=== PATIENT | male | born 1980 | race Caucasian/White ===

== ENCOUNTER 2017-09-18 08:47 | Day surgery (SDC) | payer OTHER ==
[~2017-09-18 08:47] MED LIST: Lactated Ringers 1,000 ML IV SCH; Sodium Chloride 0.9% 10 ML Syringe FLUSH PRN
[2017-09-18] MEDS ORDERED: Propofol 200 MG/20 ML SDV ONE ×3 (10:50→11:20)
--- NOTE | 2017-09-18 10:55 | PCM.PN ---
- General Info Date of Service: 09/18/17 - Review of Systems Systems Review Comment:: 37-year-old male referred by Glenys Ruvalcaba for colonoscopy. He has a history of loose stools for several years but worse over the last 2 years. He is medically stable to proceed today with no recent significant change in his health status. I discussed the proposed colonoscopy with the patient. Risks such as but not limited to bleeding and GI injury are reviewed. He appears to understand and agrees to proceed. - Patient Data Vitals - Most Recent: Last Vital Signs Temp 98.6 F 09/18/17 10:13 Pulse 77 09/18/17 10:13 Resp 18 09/18/17 10:13 BP 140/84 09/18/17 10:13 Pulse Ox 95 09/18/17 10:13 Weight - Most Recent: 163.293 kg Med Orders - Current: Current Medications Lactated Ringer's (Ringers, Lactated) 1,000 mls @ 125 mls/hr IV ASDIRECTED HAILEY Last Admin: 09/18/17 10:38 Dose: 125 mls/hr Sodium Chloride (Saline Flush) 10 ml FLUSH ASDIRECTED PRN PRN Reason: Keep Vein Open Discontinued Medications Propofol (Diprivan 20 Ml) Confirm Administered Dose 400 mg .ROUTE .STK-MED ONE Stop: 09/18/17 10:51 - Problem List Review Problem List Initiated/Reviewed/Updated: Yes - Assessment Assessment:: Diarrhea - Plan Plan:: Colonoscopy
--- NOTE | 2017-09-18 11:34 | PCM.OPNOTE ---
- General Post-Op/Procedure Note Date of Surgery/Procedure: 09/18/17 Operative Procedure(s): Colonoscopy with biopsy Findings: Normal-appearing Colon Pre Op Diagnosis: Diarrhea Post-Op Diagnosis: Normal colon Anesthesia Technique: MAC Primary Surgeon: Carlos Nettles Pathology: Biopsies of right and left colon EBL in mLs: 3 Complications: None Condition: Good Free Text/Narrative:: Intake & Output 09/17/17 09/18/17 09/18/17 22:59 06:59 14:59 Intake Total 500 Balance 500
--- NOTE | 2017-09-18 14:26 | OR ---
Date of Procedure: 09/18/2017 PREOPERATIVE DIAGNOSIS: Chronic diarrhea. POSTOPERATIVE DIAGNOSIS: Normal colon. OPERATIONS PERFORMED: Colonoscopy with biopsy. INDICATIONS FOR SURGERY: This 37-year-old male has had a history of unexplained diarrhea. This has persisted for several years and he is referred for diagnostic colonoscopy. FINDINGS: The patient's colon appears normal. The mucosa appears healthy and does not have visible signs of inflammation. No polyps are seen during the exam. DESCRIPTION OF PROCEDURE: The patient was taken to the operating room. He was given intravenous sedation, and with him in the left lateral decubitus position, digital rectal exam was performed showing no rectal masses. The Olympus colonoscope was inserted into the rectum. Retroflexed examination of the rectal canal was performed. The scope was then carefully advanced under direct visualization through the entire length of the colon until the cecum was reached. Cecal acquisition was confirmed by noting the normal internal cecal anatomy including the appendiceal orifice and ileocecal valve. The scope was then slowly withdrawn, sequentially re-examining the colonic segments until the entire colon and rectum had been fully examined. During withdrawal of the scope, random biopsies of the right and left colon were taken to evaluate his symptoms of diarrhea. After the examination had been completed and with no sign of any complication, the scope was removed and the patient was taken from the operating room in satisfactory condition. ESTIMATED BLOOD LOSS: 3 mL. COMPLICATIONS: None. PROGNOSIS: Good. POWER Nettles MD /[id number]
== END 2017-09-18 12:29 | disposition home or self-care (01) ==
LOC: LL.SDS 08:47
PROVIDERS: ATTEND Surgery
DX: K58.0 Irritable bowel syndrome with diarrhea (principal); I10 Essential (primary) hypertension; E78.1 Pure hyperglyceridemia; E66.9 Obesity, unspecified; Z79.899 Other long term (current) drug therapy
CPT/HCPCS: J2704; J7120

== ENCOUNTER 2018-09-22 17:43 | Emergency (ER) | payer OTHER ==
[2018-09-22] MEDS ORDERED: Ondansetron 4 MG Tab.DIS PO ONE (18:16)
--- NOTE | 2018-09-22 18:40 | EDM.PDOC ---
ED HPI GENERAL MEDICAL PROBLEM - General Chief Complaint: Laceration Stated Complaint: Saw laceration to left thumb Time Seen by Provider: 09/22/18 18:20 Source of Information: Reports: Patient History Limitations: Reports: No Limitations - History of Present Illness INITIAL COMMENTS - FREE TEXT/NARRATIVE: Patient came to the ER he was working on a dresser when the guard rail broke off and the wood jumped backwards and he got his right thumb caught on the circular saw Onset: Today Duration: Minutes:, Constant Location: Reports: Upper Extremity, Right Quality: Reports: Pressure, Throbbing Severity: Mild Improves with: Reports: None Worsens with: Reports: None Context: Reports: Trauma Left Finger-Thumb Pain Score (Numeric/FACES): 3 - Related Data Allergies Allergy/AdvReac Type Severity Reaction Status Date / Time No Known Allergies Allergy Verified 09/22/18 17:44 Home Meds: Home Meds Gluc/Emigdio-Msm#2/C/D3/Elio/Born [Ciuekodpuj-Mqbjwingzrx-UEU] 1 each PO DAILY@ 1200 09/18/17 [History] Lactobacillus Acidophilus [Probiotic] 1 each PO DAILY@1200 09/18/17 [History] Lisinopril/Hydrochlorothiazide [Lisinopril-HCTZ 10-12.5 MG] 1 tab PO DAILY@1200 09/18/17 [History] Multivitamins [Tab-A-Aakash] 1 tab PO DAILY@1200 09/18/17 [History] Protein Supplement [Protein Powder] 1 scoop PO DAILY@1200 09/18/17 [History] Amoxicillin/Potassium Clav [Augmentin 875-125 Tablet] 1 each PO BID #14 tablet 09/22/18 [Rx] Past Medical History HEENT History: Reports: Sinusitis Cardiovascular History: Reports: Hypertension, Other (See Below) Other Cardiovascular History: hypertriglyceridemia Gastrointestinal History: Reports: Chronic Diarrhea, Irritable Bowel Syndrome Genitourinary History: Reports: Renal Calculus Musculoskeletal History: Reports: Arthritis Neurological History: Reports: None Psychiatric History: Reports: None Endocrine/Metabolic History: Reports: Obesity/BMI 30+ Hematologic History: Reports: None Immunologic History: Reports: None Oncologic (Cancer) History: Reports: None Dermatologic History: Reports: Psoriasis - Past Surgical History Musculoskeletal Surgical History: Reports: Arthroscopic Knee, Other (See Below) Other Musculoskeletal Surgeries/Procedures:: ACL Surgery Social & Family History - Caffeine Use Caffeine Use: Reports: Coffee ED ROS GENERAL - Review of Systems Review Of Systems: ROS reveals no pertinent complaints other than HPI. ED EXAM, SKIN/RASH Exam: See Below Exam Limited By: No Limitations General Appearance: Alert, WD/WN, No Apparent Distress Ears: Normal External Exam, Normal Canal, Hearing Grossly Normal, Normal TMs Nose: Normal Inspection, Normal Mucosa, No Blood Throat/Mouth: Normal Inspection, Normal Lips, Normal Teeth, Normal Gums, Normal Oropharynx, Normal Voice, No Airway Compromise Head: Atraumatic, Normocephalic Neck: Normal Inspection, Supple, Non-Tender, Full Range of Motion Respiratory/Chest: No Respiratory Distress, Lungs Clear, Normal Breath Sounds, No Accessory Muscle Use, Chest Non-Tender Cardiovascular: Normal Peripheral Pulses, Regular Rate, Rhythm, No Edema, No Gallop, No JVD, No Murmur, No Rub GI/Abdominal: Normal Bowel Sounds, Soft, Non-Tender, No Organomegaly, No Distention, No Abnormal Bruit, No Mass Back Exam: Normal Inspection, Full Range of Motion, NT Extremities: Normal Inspection, Normal Range of Motion, Non-Tender, No Pedal Edema, Normal Capillary Refill, Other Neurological: Alert, Oriented, CN II-XII Intact, Normal Cognition, Normal Gait, Normal Reflexes, No Motor/Sensory Deficits Psychiatric: Normal Affect, Normal Mood Location, Skin: Upper Extremity, Left (Laceration left thumb linear and clean) Lymphatic: No Adenopathy ED SKIN PROCEDURES - Laceration/Wound Repair Right Digit - 1st (Thumb) Lac/Wound length In cm: 3 Appearance: Superficial Distal NVT: Neuro & Vascular Intact, No Tendon Injury Anesthetic Type: Local Local Anesthesia - Lidocaine (Xylocaine): 1% Plain Local Anesthetic Volume: 3cc Skin Prep: Providone-Iodine (Betadine), Saline Exploration/Debridement/Repair: No Foreign Material Found Closed with: Sutures Suture Size: 4-0 # of Sutures: 5 Suture Type: Interrupted Course - Vital Signs Last Recorded V/S: Last Vital Signs Temp Pulse 73 09/22/18 18:17 Resp 16 09/22/18 18:17 BP 142/73 H 09/22/18 18:17 Pulse Ox 100 09/22/18 18:17 - Orders/Labs/Meds Orders: Active Orders 24 hr Category Date Time Status Fingers Thumb Lt FA [CR] Stat Exams 09/22/18 18:39 Taken Meds: Medications Discontinued Medications Generic Name Dose Route Start Last Admin Trade Name Yury PRN Reason Stop Dose Admin Lidocaine HCl 5 ml 09/22/18 18:15 Xylocaine-Mpf 1% INJECT 09/22/18 18:16 ONETIME ONE Neomycin/Polymyxin/Bacitracin Confirm 09/22/18 18:48 09/22/18 18:51 Triple Antibiotic Oint Administered 09/22/18 18:49 1 each Dose Administration 1 each .ROUTE .STK-MED ONE Ondansetron HCl 4 mg 09/22/18 18:16 09/22/18 18:49 Zofran Odt PO 09/22/18 18:17 4 mg ONETIME ONE Administration Departure - Departure Time of Disposition: 18:44 Disposition: Home, Self-Care 01 Condition: Fair Clinical Impression: Laceration of left thumb Qualifiers: Encounter type: initial encounter Damage to nail status: without damage Foreign body presence: without foreign body Qualified Code(s): S61.012A - Laceration without foreign body of left thumb without damage to nail, initial encounter - Discharge Information *PRESCRIPTION DRUG MONITORING PROGRAM REVIEWED*: No *COPY OF PRESCRIPTION DRUG MONITORING REPORT IN PATIENT LIZBET: No Prescriptions: Amoxicillin/Potassium Clav [Augmentin 875-125 Tablet] 1 each PO BID #14 tablet Referrals: Glenys Ruvalcaba PA [Primary Care Provider] - Forms: ED Department Discharge Care Plan Goals: Patient will be sent home with Tylenol for pain he was nauseated we'll send him home on Augmentin 875 twice a day for 10 days. Have your stitches taken out in 10 days, you can get that done for free in our [facility] clinic. Watch for signs of infection in your wound: redness, swelling, drainage, etc. Keep clean and dry, wash with gently soap, apply triple antibiotic and cover with a bandaid or dressing. - My Orders Last 24 Hours: My Active Orders 09/22/18 18:39 Fingers Thumb Lt FA [CR] Stat - Assessment/Plan Last 24 Hours: My Active Orders 09/22/18 18:39 Fingers Thumb Lt FA [CR] Stat
[2018-09-22] MEDS ORDERED: Bacitracin/Neomycin/Polymyxin B Oint 0.9 GM U/D Packet ONE (18:48)
== END 2018-09-22 19:00 | disposition home or self-care (01) ==
LOC: LL.ED 17:43
DX: S61.012A Laceration without foreign body of left thumb without damage to nail, initial encounter (principal); I10 Essential (primary) hypertension; Z79.899 Other long term (current) drug therapy; W20.8XXA Other cause of strike by thrown, projected or falling object, initial encounter
CPT/HCPCS: 12002; 13131; 73140-FA; 99283-25; A9270-GY; J2001